=== PATIENT | male | born 1970 | race Caucasian/White ===

== ENCOUNTER 2022-04-04 21:39 | Emergency (ER) | payer MEDICAID ==
[~2022-04-04] VITALS: Ht 182.9 cm; Wt 79.5 kg
[2022-04-04 21:43] VITALS: BP 126/87
[2022-04-04] MEDS ORDERED: SULF-261 PO (22:06)
[2022-04-04] MEDS ORDERED: CEPH-558 PO (22:06)
[2022-04-04] MEDS ORDERED: HYDROCODONE/ACETAMINOPHEN 5-325 MG TABLET PO ONE (22:15)
== END 2022-04-04 23:06 | disposition home or self-care (01) ==
LOC: EMS 21:41
DX: L08.9 Local infection of the skin and subcutaneous tissue, unspecified (principal); B95.62 Methicillin resistant Staphylococcus aureus infection as the cause of diseases classified elsewhere
CPT/HCPCS: 99283

== ENCOUNTER 2023-03-21 12:33 | Emergency (ER) | payer MEDICAID, OTHER ==
[~2023-03-21] VITALS: Ht 180.3 cm; Wt 81.8 kg
[~2023-03-21 12:33] MED LIST: CEPH-558 PO; SULF-261 PO
[2023-03-21 12:41] VITALS: BP 112/79; PULSE 102; RESP 18; TEMP 98.3
[2023-03-21] MEDS ORDERED: CEPH-558 PO (12:52)
[2023-03-21] MEDS ORDERED: SULF-261 PO (12:53)
[2023-03-21] MEDS ORDERED: IBUP-1492 PO (12:54)
== END 2023-03-21 14:14 | disposition home or self-care (01) ==
LOC: EMS 12:48
DX: L03.116 Cellulitis of left lower limb (principal); F17.210 Nicotine dependence, cigarettes, uncomplicated; F12.90 Cannabis use, unspecified, uncomplicated
CPT/HCPCS: 99283; Z7502

== ENCOUNTER 2023-04-22 13:20 | Emergency (ER) | payer OTHER ==
[~2023-04-22] VITALS: Ht 182.9 cm; Wt 89.0 kg
[~2023-04-22 13:20] MED LIST changes: +IBUP-1492 PO
[2023-04-22 13:23] VITALS: BP 149/87; PULSE 94; RESP 16; TEMP 97.8
[2023-04-22] MEDS ORDERED: PERCT PO (13:57)
[2023-04-22] MEDS ORDERED: PENI500T2 PO (13:59)
[2023-04-22] MEDS ORDERED: IBUP-1492 PO (13:59)
[2023-04-22] MEDS ORDERED: OxyCODONE HCL/ACETAMINOPHEN 5-325 MG TABLET PO ONE (14:00)
[2023-04-22] MEDS ORDERED: PENICILLIN V POTASSIUM 500 MG TABLET PO ONE (14:00)
[2023-04-22] MEDS ORDERED: KETOROLAC TROMETHAMINE 60 MG/2 ML VIAL IM ONE (14:00)
[2023-04-22] MEDS ORDERED: OXYC5 PO (15:20)
== END 2023-04-22 14:39 | disposition home or self-care (01) ==
LOC: EMS 13:20
DX: K08.89 Other specified disorders of teeth and supporting structures (principal); F17.210 Nicotine dependence, cigarettes, uncomplicated; F12.90 Cannabis use, unspecified, uncomplicated
CPT/HCPCS: 99283; 96372; J1885

== ENCOUNTER 2023-08-07 17:54 | Emergency (ER) | payer OTHER ==
[~2023-08-07] VITALS: Ht 183.5 cm; Wt 78.0 kg
[~2023-08-07 17:54] MED LIST changes: +OXYC5 PO; +PENI500T2 PO
[2023-08-07 18:19] VITALS: TEMP 98.6
[2023-08-07 18:38] LABS: COVID AG,FIA SOURCE NASAL SWAB
[2023-08-07 19:04] LABS: SARS-COV2 (COVID) ANTIGEN,FIA Negative (Negative)
[2023-08-07] MEDS ORDERED: AZIT250T9 PO (22:36)
[2023-08-07] MEDS ORDERED: IBUP-1492 PO (22:36)
[2023-08-07] MEDS ORDERED: CefTRIAXone SODIUM 1 GM/VIAL IM ONE (22:45)
[2023-08-07] MEDS ORDERED: DEXAMETHASONE 4 MG TABLET PO ONE (22:45)
[2023-08-07] MEDS ORDERED: LIDOCAINE/PF 1% 2 ML VIAL IM ONE (22:45)
[2023-08-07 22:49] VITALS: BP 138/81; PULSE 84; RESP 18
== END 2023-08-07 22:51 | disposition home or self-care (01) ==
LOC: EMS 17:55
DX: J03.90 Acute tonsillitis, unspecified (principal); F17.210 Nicotine dependence, cigarettes, uncomplicated; F12.90 Cannabis use, unspecified, uncomplicated; Z20.822 Contact with and (suspected) exposure to COVID-19
CPT/HCPCS: 99283; 87426; 87430; 96372; J0696; J8540; J3490